=== PATIENT | male | born 1940 | race Caucasian/White ===

== ENCOUNTER → 2019-04-12 | Outpatient (CLI) | payer MEDICARE, OTHER ==
--- NOTE | 2019-04-12 11:05 | Diagnostic Imaging Report ---
PROCEDURE: US Renal Bilateral. TECHNIQUE: Multiple real-time grayscale images were obtained over the kidneys in various projections bilaterally. INDICATION: Chronic kidney disease. There are no prior studies available for comparison. FINDINGS: Both kidneys were identified. The right kidney measures 11.5 x 5.4 x 5.7 cm while the left kidney is estimated to be 11.5 x 5.3 x 5.3 cm. There is no evidence for a solid renal mass or for hydronephrosis of either kidney. Along the medial aspect of the right kidney, there is a 1.6 x 1.7 x 1.5 cm rounded hypoechoic area. I suspect that this is a cyst. However, it does not have the appearance of a simple cyst. I would recommend that CT of the abdomen and pelvis with contrast be performed to better evaluate this finding. The renal cortices are normal in thickness and echogenicity. The bladder was imaged during the course of the exam. The bladder is only partially filled and consequently not well evaluated. There is no obvious bladder abnormality evident. Both ureteral jets were noted. The pre-void bladder volume was 476 mL. Following voiding, there was still 241 mL of urine within the bladder. IMPRESSION: 1. There is no evidence for a solid renal mass for hydronephrosis of either kidney. However, the hypoechoic lesion along the medial aspect of the right kidney is of uncertain etiology. CT would be recommended to better characterize this finding. 2. There is no evidence for chronic medical renal disease. 3. There is no obvious bladder abnormality identified. However, there was poor clearing of the urine from the bladder following voiding. Dictated by: Dictated on workstation # [id number]
== END ==
LOC: RAD 09:45
PROVIDERS: ATTEND Nurse Practitioner
DX: E11.22 Type 2 diabetes mellitus with diabetic chronic kidney disease (principal); I12.9 Hypertensive chronic kidney disease with stage 1 through stage 4 chronic kidney disease, or unspecified chronic kidney disease; N18.3 Chronic kidney disease, stage 3 (moderate); E78.49 Other hyperlipidemia; M19.90 Unspecified osteoarthritis, unspecified site
CPT/HCPCS: 76770

== ENCOUNTER → 2019-10-04 | Outpatient (CLI) | payer MEDICARE, OTHER ==
--- NOTE | 2019-10-04 14:15 | Diagnostic Imaging Report ---
HISTORY: Chronic left knee pain, worsening. TECHNIQUE: Three views of the left knee. COMPARISON: None. FINDINGS: There are severe degenerative changes in the medial compartment of the left knee and mild degenerative changes in the lateral compartment. There are moderate degenerative changes in the patellofemoral compartment. There is a small left knee joint effusion. No acute fracture is seen. Alignment appears normal. IMPRESSION: 1. Tricompartmental degenerative changes in the left knee, most severe in the medial compartment. No acute fracture is seen. 2. Small left knee joint effusion. Dictated by: Dictated on workstation # [id number]
== END ==
LOC: RAD FS 13:29
PROVIDERS: ATTEND Nurse Practitioner
DX: M17.12 Unilateral primary osteoarthritis, left knee (principal); M25.462 Effusion, left knee
CPT/HCPCS: 73562

== ENCOUNTER 2020-03-17 13:36 | Emergency (ER) | payer MEDICARE, OTHER ==
[~2020-03-17] VITALS: Ht 177.8 cm; Wt 103.8 kg
--- NOTE | 2020-03-17 13:43 | ED Cardiac General ---
History of Present Illness General Stated Complaint: NEAR SYNCOPE; CHEST PAIN Source: patient Exam Limitations: no limitations History of Present Illness Date Seen by Provider: Mar 17, 2020 Time Seen by Provider: 13:41 Initial Comments 79-year-old male presents with chest pain to his left side across the middle little bit into his back. A she is approximately one week out from aortic valve replacement that was done at [facility]. Patient reports that while walking today he almost passed out. He denies any fevers or chills. He does have some mild shortness of breath. No cough. Allergies and Home Medications Allergies Coded Allergies: No Known Drug Allergies (Unverified , 03/17/20) Patient Home Medication List Home Medication List Reviewed: Yes Review of Systems Review of Systems Constitutional: No chills, No fever Respiratory: Denies Cough; Shortness of Air, SOA With Exertion Cardiovascular: Chest Pain; Denies Irregular Heart Rate Gastrointestinal: Denies Abdominal Pain, Denies Nausea, Denies Vomiting Musculoskeletal: no symptoms reported Skin: no symptoms reported Psychiatric/Neurological: No Symptoms Reported Endocrine: No Symptoms Reported Hematologic/Lymphatic: No Symptoms Reported Past Cggvcny-Fuhium-Afaqcf Hx Patient Social History Recent Foreign Travel: No Contact w/Someone Who Travel: No Physical Exam Vital Signs Vital Signs - First Documented 03/17/20 13:36 Temp 36.4 Pulse 67 Resp 20 B/P (MAP) 99/74 (82) Pulse Ox 97 O2 Delivery Room Air Capillary Refill : Height, Weight, BMI Height: '" Weight: lbs. oz. kg; BMI Method: General Appearance: No Apparent Distress, Anxious Neck: Non Tender, Supple Respiratory: Lungs Clear, Normal Breath Sounds Cardiovascular: Regular Rate, Rhythm, Other (systolic murmur) Gastrointestinal: Non Tender, Soft; No Distended, No Guarding Extremity: Normal Capillary Refill, Normal Inspection Neurologic/Psychiatric: Oriented x3, No Motor/Sensory Deficits, Normal Mood/Affect, multimedia artist II-XII Norm as Tested Skin: Other (incisions chest wall, C/D/I ) Progress/Results/Core Measures Results/Orders Lab Results Laboratory Tests Test 03/17/20 13:45 Range/Units White Blood Count 12.1 H 4.3-11.0 10^3/uL Red Blood Count 3.11 L 4.35-5.85 10^6/uL Hemoglobin 9.0 L 13.3-17.7 G/DL Hematocrit 28 L 40-54 % Mean Corpuscular Volume 90 80-99 FL Mean Corpuscular Hemoglobin 29 25-34 PG Mean Corpuscular Hemoglobin Concent 32 32-36 G/DL Red Cell Distribution Width 13.3 10.0-14.5 % Platelet Count 369 130-400 10^3/uL Mean Platelet Volume 9.7 7.4-10.4 FL Immature Granulocyte % (Auto) 1 % Neutrophils (%) (Auto) 73 42-75 % Lymphocytes (%) (Auto) 15 12-44 % Monocytes (%) (Auto) 7 0-12 % Eosinophils (%) (Auto) 6 0-10 % Basophils (%) (Auto) 1 0-10 % Neutrophils # (Auto) 8.7 H 1.8-7.8 X 10^3 Lymphocytes # (Auto) 1.8 1.0-4.0 X 10^3 Monocytes # (Auto) 0.8 0.0-1.0 X 10^3 Eosinophils # (Auto) 0.7 H 0.0-0.3 10^3/uL Basophils # (Auto) 0.1 0.0-0.1 10^3/uL Immature Granulocyte # (Auto) 0.1 0.0-0.1 10^3/uL Sodium Level 137 135-145 MMOL/L Potassium Level 4.5 3.6-5.0 MMOL/L Chloride Level 98 98-107 MMOL/L Carbon Dioxide Level 26 21-32 MMOL/L Anion Gap 13 5-14 MMOL/L Blood Urea Nitrogen 24 H 7-18 MG/DL Creatinine 1.74 H 0.60-1.30 MG/DL Estimat Glomerular Filtration Rate 38 BUN/Creatinine Ratio 14 Glucose Level 150 H 70-105 MG/DL Calcium Level 8.9 8.5-10.1 MG/DL Corrected Calcium 9.1 8.5-10.1 MG/DL Total Bilirubin 0.3 0.1-1.0 MG/DL Aspartate Amino Transf (AST/SGOT) 12 5-34 U/L Alanine Aminotransferase (ALT/SGPT) 11 0-55 U/L Alkaline Phosphatase 116 40-136 U/L Troponin I < 0.30 <0.30 NG/ML Pro-B-Type Natriuretic Peptide 1482.0 H <75.0 PG/ML Total Protein 6.5 6.4-8.2 GM/DL Albumin 3.7 3.2-4.5 GM/DL My Orders Orders - JAMES URENA DO Ed Iv/Invasive Line Start (03/17/20 13:44) Ekg Tracing (03/17/20 13:44) Monitor-Rhythm Ecg Trace Only (03/17/20 13:44) Cbc With Automated Diff (03/17/20 13:44) Comprehensive Metabolic Panel (03/17/20 13:44) Probnp Fs (03/17/20 13:44) Troponin I Fs (03/17/20 13:44) Chest Pa/Lat (2 View) (03/17/20 13:44) Vital Signs/I&O 03/17/20 03/17/20 13:36 13:36 Temp 36.4 Pulse 67 Resp 20 B/P (MAP) 99/74 (82) Pulse Ox 97 O2 Delivery Room Air Room Air Progress Progress Note : Time: 17:17 Progress Note Patient with negative EKG for any acute changes, negative chest x-ray negative troponin. I attempted to contact Dr. Lopez through [facility] for approximately 2-1/2 hours. I made multiple calls to the [facility] and a paced Dr. Lopez was never returned call after the discussed with the on-call cardiothoracic surgeon I also attempted to call Dr. Alexander office and was unable to get through. I did go and I discussed this with the patient. He is feeling better he has not had any chest pain since his arrival. At this time with no acute findings, his chest pain going on and off since the surgery a week ago it does not appear to be any significant cardiac event. I will allow him to go home. I discussed with him that if I hear from them and they want him to proceed to [facility] I will call him or his juani. He should return to the ER with any concerns at all. Patient stable and discharged home. He will call the cardiothoracic surgeon's office first thing in the morning Initial ECG Impression Date: Mar 17, 2020 Initial ECG Impression Time: 13:37 Initial ECG Rate: 77 Initial ECG Rhythm: Normal Sinus Initial ECG Intervals QRS 125ms Initial ECG Impression: Nonspecific Changes Comment nsr, no specific, no acute findings. Diagnostic Imaging Diagonstic Imaging: CT Plain Films/CT/US/NM/MRI: chest Departure Impression Primary Impression: Chest pain Qualified Codes: R07.9 - Chest pain, unspecified Disposition: 01 HOME, SELF-CARE Condition: Improved Departure-Patient Inst. Referrals: FAN MUJICA APRN (PCP/Family) Primary Care Physician Patient Instructions: Chest Pain (DC) Add. Discharge Instructions: Please return to the ER with any concerning issues for reevaluation Jason's call Dr. Babin's office first thing in the morning for further guidance. JAMES URENA DO Mar 17, 2020 13:43
[2020-03-17 14:03] LABS: BASOPHILS % (AUTO) 1 % (0-10); EOSINOPHILS % (AUTO) 6 % (0-10); HEMATOCRIT 28 % (40-54); LYMPHOCYTES # (AUTO) 1.8 X 10^3 (1.0-4.0); LYMPHOCYTES % (AUTO) 15 % (12-44); MEAN CORPUSCULAR HEMOGLOBIN 29 PG (25-34); MEAN CORPUSCULAR HGB CONC 32 G/DL (32-36); MEAN CORPUSCULAR VOLUME 90 FL (80-99); MEAN PLATELET VOLUME 9.7 FL (7.4-10.4); MONOCYTES # (AUTO) 0.8 X 10^3 (0.0-1.0); MONOCYTES % (AUTO) 7 % (0-12); NEUTROPHILS # (AUTO) 8.7 X 10^3 (1.8-7.8); NEUTROPHILS % (AUTO) 73 % (42-75); PLATELET COUNT 369 10^3/uL (130-400); WHITE BLOOD COUNT 12.1 10^3/uL (4.3-11.0)
[2020-03-17 14:04] LABS: BASOPHILS # (AUTO) 0.1 10^3/uL (0.0-0.1); EOSINOPHILS # (AUTO) 0.7 10^3/uL (0.0-0.3)
--- NOTE | 2020-03-17 14:04 | Diagnostic Imaging Report ---
Indication: Chest pain and shortness of breath. Time of exam: 1:56 PM No prior studies are available for comparison. The heart is mildly enlarged. There are changes of median sternotomy and CABG. No infiltrates are detected. The pulmonary vascularity is normal. No effusion or pneumothorax is identified. Impression: Mild cardiomegaly and status post CABG. No acute feature is detected. Dictated by: Dictated on workstation # [id number]
[2020-03-17 14:30] LABS: BUN/CREATININE RATIO 14; CARBON DIOXIDE 26 MMOL/L (21-32); CHLORIDE 98 MMOL/L (98-107); CREATININE SERUM 1.74 MG/DL (0.60-1.30); GFR ESTIMATED 38; POTASSIUM 4.5 MMOL/L (3.6-5.0); SODIUM 137 MMOL/L (135-145)
[2020-03-17 14:31] LABS: ALANINE AMINOTRANSFERASE 11 U/L (0-55); ALBUMIN 3.7 GM/DL (3.2-4.5); ALKALINE PHOSPHATASE 116 U/L (40-136); BILIRUBIN,TOTAL 0.3 MG/DL (0.1-1.0); CALCIUM 8.9 MG/DL (8.5-10.1); GLUCOSE 150 MG/DL (70-105); TOTAL PROTEIN 6.5 GM/DL (6.4-8.2)
--- NOTE | 2020-03-17 15:21 | NUR ---
Spoke with pt's re:plan of care.
--- NOTE | 2020-03-17 15:45 | NUR ---
Pt repositioned. Pt denies needs at this time. Will continue to monitor.
--- NOTE | 2020-03-17 17:23 | NUR ---
Spoke with pt's via phone regarding discharge. Dr. Mehta has tried to reach pt's surgeon four times with no return call. Will call pt with update if surgeon returns call.
[2020-03-17 17:35] VITALS: BP 100/55
== END 2020-03-17 17:35 | disposition home or self-care (01) ==
LOC: EDUNIT# 13:36 → ER FS 13:39
DX: R07.9 Chest pain, unspecified (principal); F41.9 Anxiety disorder, unspecified
CPT/HCPCS: 36415; 71046; 80053; 83880; 84484; 85025; 93005; 93041

== ENCOUNTER → 2022-03-17 | Outpatient (CLI) | payer MEDICARE, OTHER ==
--- NOTE | 2022-03-17 16:17 | Diagnostic Imaging Report ---
EXAMINATION: Right shoulder radiographs, 4 views. COMPARISON: None. HISTORY: 81-year-old male, right shoulder pain. FINDINGS: The humeral head is normally positioned relative to the glenoid. The acromioclavicular joint is normally aligned. The glenohumeral and acromioclavicular joint spaces appear well-preserved. There is material external to the patient which does limit the study. There is question of calcific attenuation adjacent to the superolateral humeral head versus artifact relating to material external to the patient. There are median sternotomy wires. There is no identified acute fracture. IMPRESSION: 1. Question of calcific attenuation adjacent to the superolateral humeral head which would be suggestive of calcific tendinitis/bursitis. This also could be artifactual relating to material external to the patient. 2. Additional right shoulder radiographic evaluation is unremarkable. Dictated by: Dictated on workstation # [id number]
== END ==
LOC: RAD FS 10:28
PROVIDERS: ATTEND Nurse Practitioner
DX: M25.511 Pain in right shoulder (principal)
CPT/HCPCS: 73030